=== PATIENT | male | born 1930 | race Caucasian/White ===

== ENCOUNTER 2019-01-04 20:19 | Inpatient (IN) | payer MEDICARE, OTHER ==
[~2019-01-04] VITALS: Ht 177.8 cm; Wt 102.6 kg
[2019-01-04] MEDS ORDERED: ATOR40TA78 PO (20:42)
[2019-01-04] MEDS ORDERED: TIMOLOL (20:42)
[2019-01-04] MEDS ORDERED: CHOL200040 PO (20:42)
[2019-01-04] MEDS ORDERED: OMEP-110 PO (20:42)
[2019-01-04] MEDS ORDERED: LEVO100T5 PO (20:42)
[2019-01-04] MEDS ORDERED: ASPI-496 PO (20:42)
[2019-01-04] MEDS ORDERED: HYDR25TA6 PO (20:42)
[2019-01-04] MEDS ORDERED: LOSA25TA25 PO (20:42)
[2019-01-04] MEDS ORDERED: LATANOPROST OP (20:42)
--- NOTE | 2019-01-04 20:45 | NUR ---
PER MD HOLD SALINE BOLUS UNTIL CXR RESULTS. POC DISCUSSED WITH PT AND FAMILY. THEY DENY FURTHER NEEDS AT THIS TIME.
[2019-01-04] MEDS ORDERED: SODIUM CHLORIDE 0.9% 1,000ML IVBOLUS ONE (21:00)
[2019-01-04 21:13] LABS: BASOPHILS % (AUTO) 0 % (0-1); EOSINOPHILS % (AUTO) 0 % (1-7); LYMPHOCYTES # (AUTO) 0.33 x10^3/uL (1-3.4); LYMPHOCYTES % (AUTO) 4 % (22-44); MD NO; MEAN CORPUSCULAR HEMOGLOBIN 31.5 pg (27.5-34.5); MEAN CORPUSCULAR HGB CONC 33.3 g/dL (33.2-36.2); MEAN CORPUSCULAR VOLUME 94.4 fL (81-97); MONOCYTES # (AUTO) 0.46 x10^3/uL (0.2-0.8); MONOCYTES % (AUTO) 5 % (2-9); NEUTROPHILS % (AUTO) 91 % (42-75); PLATELET COUNT 151 x10^3/uL (130-400); RED BLOOD COUNT 4.07 x10^6/uL (4.38-5.82); RED CELL DISTRIBUTION WIDTH 13.9 % (9.4-14.8)
[2019-01-04 21:24] LABS: ALBUMIN 2.8 g/dL (3.4-5.0); ANION GAP 9 mmol/L (5-15); CHLORIDE 105 mmol/L (98-107); CREATININE 1.49 mg/dL (0.7-1.3)
[2019-01-04] MEDS ORDERED: HEPARIN 25,000 UNITS/500ML PMX 500 ML ONE (21:43)
[2019-01-04] MEDS ORDERED: ASPIRIN 81 MG TABLET CHEW ONE (21:43)
[2019-01-04] MEDS ORDERED: HEPARIN 5,000 UNITS/ML, 1ML ONE (21:43)
[2019-01-04] MEDS ORDERED: HEPARIN 5,000 UNITS/ML, 1ML IV ONE (22:00)
[2019-01-04] MEDS ORDERED: POTASSIUM CHLORIDE 40 MEQ in SODIUM CHLORIDE 0.9% 500 ML IV ONE (22:00)
[2019-01-04] MEDS ORDERED: HEPARIN 25,000 UNITS/500ML PMX 500 ML IV PRN (22:00)
[2019-01-04] MEDS ORDERED: HEPARIN 5,000 UNITS/ML, 1ML IV PRN (22:00)
[2019-01-04] MEDS ORDERED: ASPIRIN 81 MG TABLET CHEW PO ONE (22:00)
--- NOTE | 2019-01-04 23:10 | NUR ---
[facility] AT BEDSIDE
--- NOTE | 2019-01-04 23:15 | NUR ---
SPOKE TO MD ABOUT BP, HE STATES NO CENTRAL LINE AT THIS TIME. WILL PLACE CENTRAL LINE IF PTS BP REMAINS CONSISTANTLY LOW.
--- NOTE | 2019-01-04 23:42 | NUR ---
AWAITING HOSPITALIST ORDERS
[2019-01-05] MEDS ORDERED: NITROGLYCERIN 0.4 MG/SPRAY SL PRN
[2019-01-05] MEDS ORDERED: POTASSIUM CHLORIDE 20 MEQ TAB.ER.PRT PO ONE
[2019-01-05 00:29] LABS: CHOLESTEROL, TOTAL 85 mg/dL (140-239); TRIGLYCERIDES 44 mg/dL (50-200); VLDL CHOLESTEROL 9 mg/dL (0-25)
[2019-01-05 00:32] LABS: CHOL/HDL RATIO 2.2; HDL CHOL % 45 % (26-37); HDL CHOLESTEROL (DIRECT) 38 mg/dL (40-60); LDL CHOLESTEROL,CALCULATED 38 mg/dL (54-169)
[2019-01-05] MEDS: ATORVASTATIN 80 MG TABLET PO SCH ×2 (01:29→21:20)
[2019-01-05] MEDS: MEROPENEM 1 GM in SODIUM CHLORIDE 0.9% 100 ML IV SCH ×2 (01:29→15:12)
[2019-01-05 02:54] LABS: CULTURE INDICATED? YES; MICROSCOPIC INDICATED
[2019-01-05] MEDS ORDERED: HEPARIN GTT MC SCH (03:30)
[2019-01-05 04:00] VITALS: BP 126/64
[2019-01-05 04:34] LABS: CALCIUM 7.7 mg/dL (8.5-10.1); CHLORIDE 108 mmol/L (98-107)
[2019-01-05 04:42] LABS: ALANINE AMINOTRANSFERASE 19 U/L (12-78); ALBUMIN 2.6 g/dL (3.4-5.0); ALKALINE PHOSPHATASE 66 U/L (45-117); ANION GAP 8 mmol/L (5-15); BILIRUBIN,TOTAL 0.9 mg/dL (0.2-1.0); CREATININE 1.25 mg/dL (0.7-1.3); TOTAL PROTEIN 6.4 g/dL (6.4-8.2)
[2019-01-05] MEDS: NITROGLYCERIN 0.4 MG BOTTLE (25 TABS) SL PRN ×3 (04:46→04:59)
[2019-01-05] MEDS: HEPARIN 5,000 UNITS/ML, 1ML IV PRN ×2 (04:47→15:26)
[2019-01-05] MEDS: ACETAMINOPHEN 325 MG TABLET PO PRN ×3 (04:51→18:29)
[2019-01-05] MEDS ORDERED: morphine SULFATE 10 MG/ML, 1ML IVPush ONE (05:30)
[2019-01-05] MEDS: SODIUM CHLORIDE FLUSH 10ML SYR IVF SCH ×2 (09:00→21:20)
[2019-01-05] MEDS ORDERED: MAGNESIUM SULFATE PMX 2GM/50ML 50 ML IVPB ONE (09:30)
[2019-01-05] MEDS: OMEPRAZOLE 20 MG CAPSULE.DR PO SCH (11:05)
[2019-01-05] MEDS: CHOLECALCIFEROL 1,000 UNIT TABLET PO SCH (11:06)
[2019-01-05] MEDS: LEVOTHYROXINE 100 MCG TABLET PO SCH (11:29)
[2019-01-05] MEDS: ASPIRIN 325 MG TABLET EC PO SCH (11:29)
[2019-01-05] MEDS: HEPARIN 25,000 UNITS/500ML PMX 500 ML IV PRN (15:31)
[2019-01-05] MEDS: SODIUM CHLORIDE 0.9% 1,000 ML IV SCH (18:29)
[2019-01-06] VITALS (9 sets, daily range): BP systolic 71–164; BP diastolic 51–78
[2019-01-06] MEDS: MEROPENEM 1 GM in SODIUM CHLORIDE 0.9% 100 ML IV SCH ×3 (00:03→16:52)
[2019-01-06] MEDS: ACETAMINOPHEN 325 MG TABLET PO PRN ×3 (01:34→19:48)
[2019-01-06] MEDS ORDERED: morphine SULFATE 10 MG/ML, 1ML IVPush PRN (04:30)
[2019-01-06] MEDS ORDERED: MORPHINE SULFATE 4 MG/ML, 1ML ONE (04:31)
[2019-01-06] MEDS: MORPHINE SULFATE 4 MG/ML, 1ML IVPush PRN ×3 (04:45→16:52)
[2019-01-06 05:03] LABS: ALANINE AMINOTRANSFERASE 26 U/L (12-78); ALBUMIN 2.6 g/dL (3.4-5.0); ANION GAP 8 mmol/L (5-15); CALCIUM 8.4 mg/dL (8.5-10.1); CHLORIDE 109 mmol/L (98-107); CREATININE 1.01 mg/dL (0.7-1.3)
[2019-01-06 05:06] LABS: ALKALINE PHOSPHATASE 78 U/L (45-117)
[2019-01-06] MEDS ORDERED: morphine SULFATE 10 MG/ML, 1ML IVPush ONE (05:30)
[2019-01-06] MEDS: SODIUM CHLORIDE 0.9% 1,000 ML IV SCH (05:31)
[2019-01-06 05:45] LABS: BASOPHILS # (AUTO) 0.02 x10^3/uL (0-0.1); BASOPHILS % (AUTO) 0 % (0-1); EOSINOPHILS # (AUTO) 0.03 x10^3/uL (0-0.4); EOSINOPHILS % (AUTO) 0 % (1-7); LYMPHOCYTES # (AUTO) 0.69 x10^3/uL (1-3.4); LYMPHOCYTES % (AUTO) 9 % (22-44); MD NO; MEAN CORPUSCULAR HEMOGLOBIN 31.1 pg (27.5-34.5); MEAN CORPUSCULAR HGB CONC 32.6 g/dL (33.2-36.2); MEAN CORPUSCULAR VOLUME 95.6 fL (81-97); MEAN PLATELET VOLUME 8.5 fL (7.4-10.4); MONOCYTES # (AUTO) 0.39 x10^3/uL (0.2-0.8); MONOCYTES % (AUTO) 5 % (2-9); NEUTROPHILS # (AUTO) 6.91 x10^3/uL (1.8-6.8); NEUTROPHILS % (AUTO) 86 % (42-75); PLATELET COUNT 170 x10^3/uL (130-400); RED CELL DISTRIBUTION WIDTH 14.4 % (9.4-14.8)
[2019-01-06] MEDS: ASPIRIN 325 MG TABLET EC PO SCH (06:18)
[2019-01-06] MEDS: OMEPRAZOLE 20 MG CAPSULE.DR PO SCH (08:31)
[2019-01-06] MEDS: SODIUM CHLORIDE FLUSH 10ML SYR IVF SCH ×2 (08:31→19:49)
[2019-01-06] MEDS: CHOLECALCIFEROL 1,000 UNIT TABLET PO SCH (08:31)
[2019-01-06] MEDS: LEVOTHYROXINE 100 MCG TABLET PO SCH (08:31)
[2019-01-06] MEDS ORDERED: MAGNESIUM SULFATE PMX 2GM/50ML 50 ML ONE (11:18)
[2019-01-06] MEDS ORDERED: MAGNESIUM SULFATE PMX 2GM/50ML 50 ML IV ONE (11:30)
[2019-01-06] MEDS ORDERED: MORPHINE SULFATE 4 MG/ML, 1ML IVPush ONE (18:00)
[2019-01-06] MEDS ORDERED: FUROSEMIDE 20 MG/2 ML IV ONE (18:30)
[2019-01-06] MEDS: HEPARIN 25,000 UNITS/500ML PMX 500 ML IV PRN (19:17)
[2019-01-06] MEDS: ATORVASTATIN 80 MG TABLET PO SCH (19:48)
[2019-01-06] MEDS ORDERED: KETOROLAC 10MG TABLET PO PRN (21:30)
--- NOTE | 2019-01-06 21:38 | NUR ---
ZAYNAB RODRIGUEZ - Fall Risk Medication(s) present and receiving anticoagulants. *MORPHINE AND HEPARIN DRIP Signed: 01/06/19 at 2139 by Fadi CARVER
[2019-01-07] VITALS (15 sets, daily range): BP systolic 70–107; BP diastolic 34–61
[2019-01-07] MEDS: MEROPENEM 1 GM in SODIUM CHLORIDE 0.9% 100 ML IV SCH ×3 (00:35→17:16)
[2019-01-07] MEDS ORDERED: SODIUM CHLORIDE 0.9% 1,000ML IVBOLUS ONE ×2 (01:00→08:00)
[2019-01-07] MEDS: ACETAMINOPHEN 325 MG TABLET PO PRN (01:21)
[2019-01-07 02:51] LABS: MEAN CORPUSCULAR HEMOGLOBIN 31.8 pg (27.5-34.5); MEAN CORPUSCULAR HGB CONC 32.7 g/dL (33.2-36.2); MEAN CORPUSCULAR VOLUME 97.2 fL (81-97); MEAN PLATELET VOLUME 8.8 fL (7.4-10.4); PLATELET COUNT 159 x10^3/uL (130-400); RED BLOOD COUNT 2.72 x10^6/uL (4.38-5.82); RED CELL DISTRIBUTION WIDTH 14.8 % (9.4-14.8)
[2019-01-07 03:03] LABS: ALANINE AMINOTRANSFERASE 25 U/L (12-78); ANION GAP 11 mmol/L (5-15); CALCIUM 7.3 mg/dL (8.5-10.1); CHLORIDE 109 mmol/L (98-107)
[2019-01-07 03:06] LABS: ALKALINE PHOSPHATASE 71 U/L (45-117); BILIRUBIN,TOTAL 0.9 mg/dL (0.2-1.0); CREATINE KINASE, TOTAL 441 U/L (39-308); CREATININE 1.86 mg/dL (0.7-1.3); TOTAL PROTEIN 5.2 g/dL (6.4-8.2)
[2019-01-07 03:07] LABS: MD YES
[2019-01-07 03:08] LABS: BAND#(MANUAL) 1.25 x10^3/uL; BANDS%(MANUAL) 10 % (0-7); LYMPH#(MANUAL) 0.38 x10^3/uL (1-3.4); LYMPHS% (MANUAL) 3 % (22-44); MONOS#(MANUAL) 0.38 x10^3/uL (0.3-2.7); MONOS% (MANUAL) 3 % (2-9); SEGS% (MANUAL) 84 % (42-75)
[2019-01-07 03:09] LABS: <PLATELET ESTIMATE> ADEQUATE; <PLT MORPHOLOGY> NORMAL PLT MORPH; ANISOCYTOSIS 1+; ECHINOCYTES 1+
[2019-01-07] MEDS ORDERED: SODIUM CHLORIDE 0.9% 1,000 ML IV SCH ×2 (04:00→06:00)
[2019-01-07] MEDS ORDERED: OMNIPAQUE 350 MG/ML, 100ML BOTTLE ONE (05:08)
[2019-01-07] MEDS ORDERED: HYDROmorphone 1 MG/ML, 1ML INJ IV PRN (05:30)
[2019-01-07] MEDS ORDERED: HYDROmorphone 2 MG/ML, 1ML IV PRN (05:41)
[2019-01-07] MEDS: LEVOTHYROXINE 100 MCG TABLET PO SCH (05:59)
[2019-01-07 09:04] LABS: INTERNATIONAL NORMALIZED RATIO 1.06 (0.93-1.1); PROTHROMBIN TIME 11.1 Seconds (9.6-11.5)
[2019-01-07] MEDS: CHOLECALCIFEROL 1,000 UNIT TABLET PO SCH (10:05)
[2019-01-07] MEDS: OMEPRAZOLE 20 MG CAPSULE.DR PO SCH (10:05)
[2019-01-07] MEDS: SODIUM CHLORIDE FLUSH 10ML SYR IVF SCH ×2 (10:13→21:55)
[2019-01-07] MEDS: MORPHINE SULFATE 4 MG/ML, 1ML IVPush PRN (10:20)
[2019-01-07] MEDS: HYDROmorphone 2 MG/ML, 1ML IV PRN ×2 (11:21→14:07)
[2019-01-07] MEDS ORDERED: FUROSEMIDE 20 MG/2 ML IV SCH (19:00)
[2019-01-07] MEDS ORDERED: FUROSEMIDE 20 MG/2 ML IV ONE (21:00)
[2019-01-07] MEDS: ATORVASTATIN 80 MG TABLET PO SCH (21:54)
[2019-01-08] VITALS (13 sets, daily range): BP systolic 103–136; BP diastolic 42–80
[2019-01-08] MEDS: MEROPENEM 1 GM in SODIUM CHLORIDE 0.9% 100 ML IV SCH ×2 (00:49→09:01)
[2019-01-08] MEDS ORDERED: ALBUTEROL SULFATE 2.5 MG/3 ML ONE (02:09)
[2019-01-08 05:15] LABS: ALBUMIN 2.2 g/dL (3.4-5.0); ANION GAP 12 mmol/L (5-15); CALCIUM 7.2 mg/dL (8.5-10.1); CHLORIDE 106 mmol/L (98-107)
[2019-01-08 05:23] LABS: MEAN CORPUSCULAR HEMOGLOBIN 30.7 pg (27.5-34.5); MEAN CORPUSCULAR VOLUME 92.9 fL (81-97); MEAN PLATELET VOLUME 8.9 fL (7.4-10.4); PLATELET COUNT 186 x10^3/uL (130-400); RED BLOOD COUNT 2.41 x10^6/uL (4.38-5.82); RED CELL DISTRIBUTION WIDTH 15.2 % (9.4-14.8)
[2019-01-08 05:35] LABS: % IRON SATURATION 94 % (20-55); ALANINE AMINOTRANSFERASE 124 U/L (12-78); ALKALINE PHOSPHATASE 92 U/L (45-117); BILIRUBIN,TOTAL 1.6 mg/dL (0.2-1.0); CREATINE KINASE, TOTAL 1158 U/L (39-308); IRON LEVEL 171 mcg/dL (65-175); TOTAL IRON BINDING CAPACITY 182 mcg/dL (250-450); TOTAL PROTEIN 5.9 g/dL (6.4-8.2)
[2019-01-08 05:42] LABS: MD YES
[2019-01-08 05:46] LABS: BAND#(MANUAL) 0.98 x10^3/uL; BANDS%(MANUAL) 6 % (0-7); LYMPH#(MANUAL) 1.14 x10^3/uL (1-3.4); LYMPHS% (MANUAL) 7 % (22-44); MONOS#(MANUAL) 0.49 x10^3/uL (0.3-2.7); MONOS% (MANUAL) 3 % (2-9); SEG#(MANUAL) 13.69 x10^3/uL (1.8-6.8); SEGS% (MANUAL) 84 % (42-75)
[2019-01-08 05:47] LABS: <PLATELET ESTIMATE> ADEQUATE; <PLT MORPHOLOGY> NORMAL PLT MORPH; ANISOCYTOSIS 1+
[2019-01-08] MEDS ORDERED: ASPIRIN 81 MG TABLET EC PO SCH (06:00)
[2019-01-08] MEDS: LEVOTHYROXINE 100 MCG TABLET PO SCH (06:15)
[2019-01-08] MEDS: OMEPRAZOLE 20 MG CAPSULE.DR PO SCH (08:59)
[2019-01-08] MEDS: CHOLECALCIFEROL 1,000 UNIT TABLET PO SCH (08:59)
[2019-01-08] MEDS: SODIUM CHLORIDE FLUSH 10ML SYR IVF SCH ×2 (09:02→21:59)
[2019-01-08] MEDS: ALBUTEROL SULFATE 2.5 MG/3 ML NPPB PRN (10:28)
[2019-01-08] MEDS: ACETAMINOPHEN 325 MG TABLET PO PRN (11:14)
[2019-01-08] MEDS ORDERED: BISACODYL 10 MG SUPP PR PRN (12:00)
[2019-01-08] MEDS ORDERED: LACTULOSE 20 GM/30 ML UDC PO PRN (12:00)
[2019-01-08] MEDS: ATORVASTATIN 80 MG TABLET PO SCH (21:59)
[2019-01-08] MEDS: SENNA/DOCUSATE TABLET PO SCH (21:59)
[2019-01-08] MEDS: MEROPENEM 0.5 GM in SODIUM CHLORIDE 0.9% 100 ML IV SCH (22:25)
[2019-01-09 00:46] VITALS: BP 112/67
[2019-01-09] MEDS: LEVOTHYROXINE 100 MCG TABLET PO SCH (05:15)
[2019-01-09 05:34] LABS: ANION GAP 12 mmol/L (5-15); CHLORIDE 106 mmol/L (98-107)
[2019-01-09 05:36] LABS: CREATININE 3.54 mg/dL (0.7-1.3)
[2019-01-09 05:54] LABS: MEAN CORPUSCULAR HEMOGLOBIN 30.8 pg (27.5-34.5); MEAN CORPUSCULAR HGB CONC 33.5 g/dL (33.2-36.2); MEAN CORPUSCULAR VOLUME 92.1 fL (81-97); MEAN PLATELET VOLUME 8.2 fL (7.4-10.4); PLATELET COUNT 158 x10^3/uL (130-400); RED BLOOD COUNT 2.64 x10^6/uL (4.38-5.82); RED CELL DISTRIBUTION WIDTH 15.2 % (9.4-14.8)
[2019-01-09 06:44] LABS: MD YES
[2019-01-09 06:46] LABS: BAND#(MANUAL) 0.45 x10^3/uL; BANDS%(MANUAL) 4 % (0-7); EOS#(MANUAL) 0.45 x10^3/uL (0.0-0.4); EOS% (MANUAL) 4 % (1-7); LYMPH#(MANUAL) 0.34 x10^3/uL (1-3.4); LYMPHS% (MANUAL) 3 % (22-44); MONOS#(MANUAL) 0.45 x10^3/uL (0.3-2.7); MONOS% (MANUAL) 4 % (2-9); MYELOCYTES# (MANUAL) 0.11 x10^3/uL (0-0); MYELOCYTES% (MANUAL) 1 % (0-0); REACTIVE LYMPHS # (MANUAL) 0.11 x10^3/uL (0-0); REACTIVE LYMPHS % (MANUAL) 1 % (0-0); SEGS% (MANUAL) 83 % (42-75)
[2019-01-09 06:47] LABS: ANISOCYTOSIS 1+
[2019-01-09 06:48] LABS: <PLATELET ESTIMATE> ADEQUATE; <PLT MORPHOLOGY> NORMAL PLT MORPH
[2019-01-09 07:37] VITALS: BP 148/71
[2019-01-09] MEDS: SODIUM CHLORIDE FLUSH 10ML SYR IVF SCH ×2 (09:00→20:19)
[2019-01-09] MEDS: OMEPRAZOLE 20 MG CAPSULE.DR PO SCH (09:31)
[2019-01-09] MEDS: CHOLECALCIFEROL 1,000 UNIT TABLET PO SCH (09:31)
[2019-01-09] MEDS: DOCUSATE 100 MG CAPSULE PO SCH (09:31)
[2019-01-09] MEDS: ALBUTEROL SULFATE 2.5 MG/3 ML NPPB PRN (10:28)
[2019-01-09] MEDS: MEROPENEM 0.5 GM in SODIUM CHLORIDE 0.9% 100 ML IV SCH ×2 (11:12→23:40)
[2019-01-09] MEDS: methylPREDNISolone SOD SUCC 125 MG/2 ML IVPush SCH ×3 (11:30→23:41)
[2019-01-09 13:47] VITALS: BP 127/79
[2019-01-09] MEDS ORDERED: FUROSEMIDE 40 MG/4 ML IV ONE (17:00)
[2019-01-09 19:34] VITALS: BP 130/69
[2019-01-09] MEDS: SENNA/DOCUSATE TABLET PO SCH (20:19)
[2019-01-09] MEDS: ATORVASTATIN 80 MG TABLET PO SCH (20:19)
[2019-01-09 23:46] VITALS: BP 132/75
[2019-01-10] MEDS: LEVOTHYROXINE 100 MCG TABLET PO SCH (04:21)
[2019-01-10] MEDS: methylPREDNISolone SOD SUCC 125 MG/2 ML IVPush SCH ×4 (04:21→23:05)
[2019-01-10 05:03] LABS: ANION GAP 12 mmol/L (5-15); CALCIUM 7.6 mg/dL (8.5-10.1); CHLORIDE 103 mmol/L (98-107); CREATININE 3.94 mg/dL (0.7-1.3)
[2019-01-10 05:06] LABS: MEAN CORPUSCULAR HEMOGLOBIN 30.7 pg (27.5-34.5); MEAN CORPUSCULAR HGB CONC 33.4 g/dL (33.2-36.2); MEAN CORPUSCULAR VOLUME 92.2 fL (81-97); MEAN PLATELET VOLUME 8.2 fL (7.4-10.4); PLATELET COUNT 217 x10^3/uL (130-400); RED BLOOD COUNT 3.05 x10^6/uL (4.38-5.82); RED CELL DISTRIBUTION WIDTH 15.1 % (9.4-14.8)
[2019-01-10 05:46] LABS: MD YES
[2019-01-10 05:48] LABS: ANISOCYTOSIS 1+; BAND#(MANUAL) 1.45 x10^3/uL; BANDS%(MANUAL) 9 % (0-7); LYMPH#(MANUAL) 0.64 x10^3/uL (1-3.4); LYMPHS% (MANUAL) 4 % (22-44); METAMYELOCYTES# (MANUAL) 0.16 x10^3/uL (0-0); METAMYELOCYTES% (MANUAL) 1 % (0-1); MONOS#(MANUAL) 0.32 x10^3/uL (0.3-2.7); MONOS% (MANUAL) 2 % (2-9); SEG#(MANUAL) 13.52 x10^3/uL (1.8-6.8); SEGS% (MANUAL) 84 % (42-75); TOXIC GRAN 1+
[2019-01-10 05:49] LABS: <PLATELET ESTIMATE> ADEQUATE; <PLT MORPHOLOGY> NORMAL PLT MORPH
[2019-01-10 08:00] VITALS: BP 147/68
[2019-01-10] MEDS: CHOLECALCIFEROL 1,000 UNIT TABLET PO SCH (08:04)
[2019-01-10] MEDS: OMEPRAZOLE 20 MG CAPSULE.DR PO SCH (08:04)
[2019-01-10] MEDS: SODIUM CHLORIDE FLUSH 10ML SYR IVF SCH ×2 (08:05→21:03)
[2019-01-10] MEDS: DOCUSATE 100 MG CAPSULE PO SCH (08:05)
[2019-01-10] MEDS: MEROPENEM 0.5 GM in SODIUM CHLORIDE 0.9% 100 ML IV SCH ×2 (11:34→23:05)
[2019-01-10] MEDS ORDERED: METH125V16 IVPush (11:37)
[2019-01-10 13:25] VITALS: BP 109/64
[2019-01-10 19:16] VITALS: BP 128/74
[2019-01-10] MEDS: ATORVASTATIN 80 MG TABLET PO SCH (21:03)
[2019-01-10] MEDS ORDERED: GUAIFENESIN ER 600 MG TABLET PO ONE (22:15)
[2019-01-11 02:00] VITALS: BP_SYST 132; BP_DIAS 38; BP_DIAS 72
[2019-01-11] MEDS: methylPREDNISolone SOD SUCC 125 MG/2 ML IVPush SCH ×2 (05:26→11:39)
[2019-01-11] MEDS: LEVOTHYROXINE 100 MCG TABLET PO SCH (05:27)
[2019-01-11 05:58] LABS: MEAN CORPUSCULAR HEMOGLOBIN 30.3 pg (27.5-34.5); MEAN CORPUSCULAR HGB CONC 33.1 g/dL (33.2-36.2); MEAN CORPUSCULAR VOLUME 91.6 fL (81-97); MEAN PLATELET VOLUME 8.2 fL (7.4-10.4); PLATELET COUNT 236 x10^3/uL (130-400); RED BLOOD COUNT 2.96 x10^6/uL (4.38-5.82); RED CELL DISTRIBUTION WIDTH 15.4 % (9.4-14.8)
[2019-01-11 06:06] LABS: ANION GAP 12 mmol/L (5-15); CALCIUM 7.4 mg/dL (8.5-10.1); CHLORIDE 104 mmol/L (98-107); CREATININE 4.16 mg/dL (0.7-1.3)
[2019-01-11 06:11] LABS: TROPONIN I 0.314 ng/mL (0.000-0.045)
[2019-01-11 06:43] LABS: BASOPHILS % (AUTO) 0 % (0-1); EOSINOPHILS % (AUTO) 0 % (1-7); LYMPHOCYTES # (AUTO) 0.58 x10^3/uL (1-3.4); LYMPHOCYTES % (AUTO) 3 % (22-44); MD SCAN; MONOCYTES # (AUTO) 0.66 x10^3/uL (0.2-0.8); MONOCYTES % (AUTO) 4 % (2-9); NEUTROPHILS # (AUTO) 16.86 x10^3/uL (1.8-6.8); NEUTROPHILS % (AUTO) 93 % (42-75)
[2019-01-11 07:07] VITALS: BP 119/73
[2019-01-11] MEDS: OMEPRAZOLE 20 MG CAPSULE.DR PO SCH (08:38)
[2019-01-11] MEDS: DOCUSATE 100 MG CAPSULE PO SCH (08:38)
[2019-01-11] MEDS: CHOLECALCIFEROL 1,000 UNIT TABLET PO SCH (08:39)
[2019-01-11] MEDS: SODIUM CHLORIDE FLUSH 10ML SYR IVF SCH (08:39)
[2019-01-11] MEDS: MEROPENEM 0.5 GM in SODIUM CHLORIDE 0.9% 100 ML IV SCH (11:39)
[2019-01-11 12:45] VITALS: BP 122/63
== END 2019-01-11 14:30 | disposition short-term general hospital (02) | DRG 871 ==
LOC: ED 20:43 → EDIP 22:14 → CCU 01-05 00:28 → 5SO 01-06 13:50 → CCU 01-07 08:11 → 3NE 01-07 12:26 → CCU 01-07 12:35 → 5SO 01-08 12:12
PROVIDERS: ADMIT Internal Medicine; ATTEND Internal Medicine
PROC: 0T9B70Z Drainage of Bladder with Drainage Device, Via Natural or Artificial Opening (ICD-10-PCS; 2019-01-05)
PROC: 02HV33Z Insertion of Infusion Device into Superior Vena Cava, Percutaneous Approach (ICD-10-PCS; principal; 2019-01-07)
PROC: B548ZZA Ultrasonography of Superior Vena Cava, Guidance (ICD-10-PCS; 2019-01-07)
PROC: 30233N1 Transfusion of Nonautologous Red Blood Cells into Peripheral Vein, Percutaneous Approach (ICD-10-PCS; 2019-01-07)
DX: A41.9 Sepsis, unspecified organism (principal); I21.4 Non-ST elevation (NSTEMI) myocardial infarction; J96.00 Acute respiratory failure, unspecified whether with hypoxia or hypercapnia; N17.0 Acute kidney failure with tubular necrosis; R57.8 Other shock; R65.21 Severe sepsis with septic shock; N12 Tubulo-interstitial nephritis, not specified as acute or chronic; D62 Acute posthemorrhagic anemia; E87.2 Acidosis; I50.32 Chronic diastolic (congestive) heart failure; I82.403 Acute embolism and thrombosis of unspecified deep veins of lower extremity, bilateral; K56.7 Ileus, unspecified; S37.011A Minor contusion of right kidney, initial encounter; J98.11 Atelectasis; E03.9 Hypothyroidism, unspecified; E66.9 Obesity, unspecified; E78.5 Hyperlipidemia, unspecified; E87.6 Hypokalemia; H40.9 Unspecified glaucoma; I08.3 Combined rheumatic disorders of mitral, aortic and tricuspid valves; I11.0 Hypertensive heart disease with heart failure; I20.9 Angina pectoris, unspecified; T50.8X5A Adverse effect of diagnostic agents, initial encounter; Z96.653 Presence of artificial knee joint, bilateral; W18.30XA Fall on same level, unspecified, initial encounter; Y92.410 Unspecified street and highway as the place of occurrence of the external cause; V89.2XXA Person injured in unspecified motor-vehicle accident, traffic, initial encounter; Z79.82 Long term (current) use of aspirin; Z72.0 Tobacco use; Z79.890 Hormone replacement therapy; Z82.49 Family history of ischemic heart disease and other diseases of the circulatory system; Z85.46 Personal history of malignant neoplasm of prostate; Z85.820 Personal history of malignant melanoma of skin; Z88.0 Allergy status to penicillin; Z90.79 Acquired absence of other genital organ(s); Z68.32 Body mass index [BMI] 32.0-32.9, adult
CPT/HCPCS: 36415; 36573; 70450; 71045; 74018; 74178; 76770; 78582; 80048; 80053; 80061; 81001; 82040; 82306; 82550; 82728; 83540; 83550; 83605; 83735; 83880; 83970; 84100; 84145; 84484; 84550; 85014; 85018; 85025; 85520; 85610; 85730; 86850; 86900; 86923; 87040; 87081; 87086; 93005; 93306; 93308; 93321; 93325; 93970; 94640; 99285; G0378; J1170; J1644; J1940; J2185; J3480; J7613; Q9967; A9540; A9558; C1751; C9898; J2270; J2930; J3475; J7030; J7040; P9016